=== PATIENT | female | born 1990 | race Caucasian/White ===

== ENCOUNTER 2018-07-25 07:28 | Outpatient (CLI) | payer BC ==
[2018-07-25 07:38] LABS: BASOPHILS % (AUTO) 0.1 %; EOSINOPHILS # (AUTO) 0.4 10^3/uL (0.0-0.7); EOSINOPHILS % (AUTO) 6.5 %; HGB - HEMOGLOBIN 15.2 g/dL (12.0-16.0); LYMPHOCYTES % (AUTO) 31.4 %; MEAN CORPUSCULAR HEMOGLOBIN 30.2 pg (27.0-31.0); MEAN CORPUSCULAR HGB CONC 33.1 g/dL (32.0-36.0); MEAN CORPUSCULAR VOLUME 91.4 fL (81.0-99.0); MEAN PLATELET VOLUME 8.7 fL (7.9-10.8); MONOCYTES # (AUTO) 0.5 10^3/uL (0.0-1.0); MONOCYTES % (AUTO) 7.4 %; NEUTROPHILS # (AUTO) 3.5 10^3/uL (1.5-6.6); NEUTROPHILS % (AUTO) 54.6 %; PLT - PLATELET COUNT 310 10^3/uL (130-450); RED BLOOD COUNT 5.03 10^6/uL (4.20-5.40); RED CELL DISTRIBUTION WIDTH 12.7 % (12.0-15.0); WHITE BLOOD COUNT 6.4 x10^3/uL (4.8-10.8)
[2018-07-25 08:01] LABS: ALBUMIN 3.8 g/dL (3.2-5.5); ALKALINE PHOSPHATASE 69 IU/L (42-121); ALT ALANINE AMINOTRANSFERASE 21 IU/L (10-60); AST ASPARTATE AMINOTRANSFERASE 23 IU/L (10-42); BILIRUBIN,TOTAL 0.5 mg/dL (0.2-1.0); BUN - BLOOD UREA NITROGEN 17 mg/dL (6-20); CALCIUM 9.3 mg/dL (8.5-10.3); CARBON DIOXIDE - CO2 25 mmol/L (21-32); CHLORIDE 102 mmol/L (101-111); CHOL/HDL RATIO 2.8 (<4.4); CHOLESTEROL 260 mg/dL; CREATININE 0.7 mg/dL (0.4-1.0); GFR - MDRD 101 (>89); GLUCOSE 84 mg/dL (70-100); HDL CHOLESTEROL 94 mg/dL; LDL CHOLESTEROL,CALCULATED 153 mg/dL; LDL/HDL RATIO 1.6 (<4.4); SODIUM 138 mmol/L (135-145); TOTAL PROTEIN 7.8 g/dL (6.7-8.2); VLDL CHOLESTEROL 13 mg/dL
[2018-07-25 08:06] LABS: HEMOGLOBIN A1C 0.57 g/dL; HEMOGLOBIN A1C % 5.2 % (4.6-6.2)
== END 2018-07-25 07:29 | disposition home or self-care (01) ==
LOC: LAB 07:28
PROVIDERS: ATTEND Family Medicine
DX: Z00.00 Encounter for general adult medical examination without abnormal findings (principal); F41.9 Anxiety disorder, unspecified; R00.2 Palpitations
CPT/HCPCS: 36415; 80053; 80061; 83036; 83721; 84443; 85025

== ENCOUNTER 2020-03-21 15:00 | Outpatient (CLI) | payer BC ==
--- NOTE | 2020-03-21 15:03 | XRAY Report ---
PROCEDURE: Foot 3 View LT INDICATIONS: NONDISPLACED FX OF 5TH METARSAL OF L FOOT TECHNIQUE: 3 views of the foot were acquired. COMPARISON: None FINDINGS: Bones: There is no fracture identified. Joint spaces are maintained without degenerative changes. No suspicious lytic or blastic osseous lesion. Soft tissues: No tibiotalar joint effusion. Achilles tendon appears normal. IMPRESSION: No acute fracture identified. Reviewed by: Colin Yost MD on 03/21/2020 3:02 PM [facility] Approved by: Colin Yost MD on 03/21/2020 3:02 PM PST Station ID: [id number]
== END 2020-03-21 23:59 | disposition home or self-care (01) ==
LOC: DI.N 15:00
PROVIDERS: ATTEND Physician Assistant Medical
DX: S92.355A Nondisplaced fracture of fifth metatarsal bone, left foot, initial encounter for closed fracture (principal)

== ENCOUNTER 2020-05-06 15:18 | Outpatient (CLI) | payer BC ==
[2020-05-06 19:21] LABS: ALBUMIN 3.8 g/dL (3.2-5.5); BILIRUBIN,TOTAL 0.3 mg/dL (0.2-1.0); CALCIUM 9.1 mg/dL (8.5-10.3); CREATININE 0.9 mg/dL (0.4-1.0); TOTAL PROTEIN 7.8 g/dL (6.7-8.2)
== END 2020-05-06 23:59 | disposition home or self-care (01) ==
LOC: LAB.WCP 15:18
PROVIDERS: ATTEND Family Medicine
DX: R63.5 Abnormal weight gain (principal)
CPT/HCPCS: 36415; 80053; 84443; 84702

== ENCOUNTER 2020-08-19 14:27 | Outpatient (CLI) | payer BC ==
--- NOTE | 2020-08-19 16:34 | Ultrasound Report ---
PROCEDURE: Retroperitoneal INDICATIONS: HEMATURIA, FLANK PAIN TECHNIQUE: Real-time scanning was performed of the retroperitoneal organs, with image documentation. COMPARISON: None. FINDINGS: Kidneys: Kidneys are normal in size. Right kidney measures 10.3 cm long; left kidney measures 10.8 cm long. Right renal cortical thickness is 1.4 cm; left renal cortical thickness is 1.7 cm. No khadar d masses, hydronephrosis, or nephrolithiasis. Left renal cyst measuring 1.4 x 1.0 x 0.8 cm. Both ure teral jets are visualized. Prevoid bladder volume measures 288 cc. Postvoid residual measures 3 cc IMPRESSION: Simple appearing left renal cyst. No hydronephrosis Reviewed by: Pj Corbett MD on 08/19/2020 4:33 PM PDT Approved by: Pj Corbett MD on 08/19/2020 4:33 PM PDT Station ID: [id number]
== END 2020-08-19 14:28 | disposition home or self-care (01) ==
LOC: DI 14:27
PROVIDERS: ATTEND Family Medicine
DX: N28.1 Cyst of kidney, acquired (principal)

== ENCOUNTER 2022-06-28 08:03 | Outpatient (CLI) | payer BC ==
[2022-06-28 08:16] LABS: BASOPHILS # (AUTO) 0.1 10^3/uL (0.0-0.1); BASOPHILS % (AUTO) 1.1 %; EOSINOPHILS # (AUTO) 1.1 10^3/uL (0.0-0.7); EOSINOPHILS % (AUTO) 11.7 %; HCT - HEMATOCRIT 44.7 % (37.0-47.0); HGB - HEMOGLOBIN 14.5 g/dL (12.0-16.0); LYMPHOCYTES # (AUTO) 2.4 10^3/uL (1.5-3.5); LYMPHOCYTES % (AUTO) 24.8 %; MEAN CORPUSCULAR HEMOGLOBIN 30.2 pg (27.0-31.0); MEAN CORPUSCULAR HGB CONC 32.4 g/dL (32.0-36.0); MEAN CORPUSCULAR VOLUME 93.1 fL (81.0-99.0); MEAN PLATELET VOLUME 10.3 fL (7.9-10.8); MONOCYTES # (AUTO) 0.8 10^3/uL (0.0-1.0); MONOCYTES % (AUTO) 7.8 %; NEUTROPHILS # (AUTO) 5.3 10^3/uL (1.5-6.6); NEUTROPHILS % (AUTO) 54.2 %; PLT - PLATELET COUNT 326 10^3/uL (130-450); RED CELL DISTRIBUTION WIDTH 12.8 % (12.0-15.0); WHITE BLOOD COUNT 9.7 x10^3/uL (4.8-10.8)
[2022-06-28 08:18] LABS: SLIDE REVIEW? Indicated
[2022-06-28 08:34] LABS: ALBUMIN 3.6 g/dL (3.2-5.5); ALBUMIN/GLOBULIN RATIO 0.9 (1.0-2.2); ALKALINE PHOSPHATASE 114 IU/L (42-121); ALT ALANINE AMINOTRANSFERASE 53 IU/L (10-60); AST ASPARTATE AMINOTRANSFERASE 35 IU/L (10-42); BILIRUBIN,TOTAL 0.5 mg/dL (0.2-1.0); BUN - BLOOD UREA NITROGEN 14 mg/dL (6-20); CALCIUM 9.4 mg/dL (8.5-10.3); CARBON DIOXIDE - CO2 24 mmol/L (21-32); CHLORIDE 108 mmol/L (101-111); CHOL/HDL RATIO 4.3 (<4.4); CHOLESTEROL 257 mg/dL; CREATININE 0.7 mg/dL (0.4-1.0); GFR - MDRD 98 (>89); GLUCOSE 111 mg/dL (70-100); HDL CHOLESTEROL 60 mg/dL; LDL CHOLESTEROL,CALCULATED 176 mg/dL; LDL/HDL RATIO 2.9 (<4.4); POTASSIUM 4.1 mmol/L (3.5-5.0); SODIUM 141 mmol/L (135-145); TOTAL PROTEIN 7.7 g/dL (6.7-8.2); TRIGLYCERIDES 105 mg/dL; VLDL CHOLESTEROL 21 mg/dL
[2022-06-28 08:46] LABS: THYROID STIMULATING HORMONE 1.92 uIU/mL (0.34-5.60)
[2022-06-28 08:47] LABS: PLATELET MORPHOLOGY NORMAL APPEARANCE (NORMAL)
[2022-06-28 08:48] LABS: PLATELET ESTIMATE, MANUAL NORMAL (130-450,000) (NORMAL); RBC MORPHOLOGY (MULTIPLE) NORMAL APPEARANCE (NORMAL); WBC MORPHOLOGY (MULTIPLE) NORMAL APPEARANCE (NORMAL)
== END 2022-06-28 08:04 | disposition home or self-care (01) ==
LOC: LAB 08:03
PROVIDERS: ATTEND Nurse Practitioner
DX: Z13.220 Encounter for screening for lipoid disorders (principal)
CPT/HCPCS: 36415; 80053; 80061; 83721; 84443; 85025